=== PATIENT | male | born 1945 | race Caucasian/White ===

== ENCOUNTER 2016-10-01 09:55 | Day surgery (SDC) | payer MEDICARE ==
[~2016-10-01] VITALS: Ht 188 cm; Wt 101.0 kg
[~2016-10-01 09:55] MED LIST: LASI20TA PO; POTA-243 PO; SULF1TAB47 PO; Z.0.NO CURRENT MEDS
[2016-10-01 10:14] VITALS: BP 127/71; PULSE 80; RESP 20; TEMP 97.9; O2SAT 93
[2016-10-01] MEDS ORDERED: PROT6POW PO (10:34)
[2016-10-01] MEDS ORDERED: JANT10TA PO (10:34)
[2016-10-01] MEDS ORDERED: POTA10PO PO (10:34)
[2016-10-01] MEDS ORDERED: ATOR40TA16 PO (10:34)
[2016-10-01] MEDS ORDERED: FOLI1TAB4 PO (10:34)
[2016-10-01] MEDS ORDERED: OXYC1CAP PO (10:34)
[2016-10-01] MEDS ORDERED: NICO2GUM68 TOPICAL (10:34)
[2016-10-01] MEDS ORDERED: SODIUM CHLORIDE 0.9% 1000 ML IV SCH (11:15)
[2016-10-01] MEDS ORDERED: MIDAZOLAM HCL 5 MG/5 ML VIAL ONE (11:46)
[2016-10-01] MEDS ORDERED: fentaNYL CITRATE 250 MCG/5 ML AMP ONE (11:46)
[2016-10-01] MEDS ORDERED: IOHEXOL 350 MG/ML 50 ML BTL (for RAD DIAG) J-TUBE ONE (12:25)
--- NOTE | 2016-10-01 12:29 | PD.RAD ---
Post Procedure Progress Note Pre Procedure Diagnosis: (1) Leak of percutaneous jejunostomy tube Post Procedure Diagnosis: (1) Leak of percutaneous jejunostomy tube Procedure Date: Oct 01, 2016 Supervising Radiologist: Bernard Lozano Anesthesia: Local, Conscious Sedation Plan of Activity Patient to Unit: [facility] Patient Condition: Good See PACS Report for procedural detail/treatment Feeding Tube Jejunostomy Replacement Bernard Lozano MD Oct 01, 2016 12:28
[2016-10-01 12:30] VITALS: BP 136/58; PULSE 79; RESP 16; TEMP 98.4; O2SAT 96
[2016-10-01 12:45] VITALS: BP 148/59; PULSE 76; RESP 16; O2SAT 96
--- NOTE | 2016-10-01 13:05 | RADRPT ---
EXAM DATE/TIME: 10/01/2016 10:11 [place] COMPARISON: No previous studies available for comparison. INDICATIONS : Patient with history of esophageal cancer in need of leaking J-tube exchange. MEDICAL HISTORY : Esophageal cancer with chemotherapy and radiation SURGICAL HISTORY : Colonoscopy, EGD, Lumbar decompression, Esophagogastric anastomosis surgery ENCOUNTER: Initial ACUITY: >1 year PAIN SCORE: 6/10 LOCATION: Right knee FLUORO TIME: 0.9 minutes IMAGE SERIES: 2 SEDATION TIME: 30 minutes CONTRAST: 10 cc Omnipaque (iohexol) 350 MEDICATION(S): 1.) 3.5 mg midazolam (Versed) IV 2.) 175 mcg Fentanyl (Sublimaze) IV DEVICE(S): 1.) 16F Jejunal feeding tube PROCEDURE : 1. Fluoroscopically guided tube exchange. 2. Conscious sedation with continuous EKG and oximetry monitoring. The risks, benefits and alternatives to the procedure were explained and verbal and written consent w as obtained. The site was prepped in sterile fashion. Full sterile technique was used, including ca p, mask, sterile gloves and gown and a large sterile sheet. Hand hygiene and 2% chlorhexidine and/or betadine/alcohol prep was utilized per protocol for cutaneous antisepsis. With fluoroscopic guidance the previously placed tube was exchanged for the prescribed catheter. Pos t procedure image demonstrates satisfactory position of the tube. Conscious sedation was performed with the prescribed dosages and duration as above in the presence of an independent trained radiology nurse to assist in the monitoring of the patient. EKG and oximetry remained stable throughout the procedure. The patient tolerated the procedure well and there were no complications. The patient was sent to post anesthesia recovery in stable condition. CONCLUSION: Uncomplicated tube exchange as above. Bernard Lozano MD on October 01, 2016 at 13:03 Board Certified Radiologist. This report was verified electronically.
[2016-10-01 13:15] VITALS: BP 153/68; PULSE 80; RESP 16; O2SAT 96
[2016-10-01 13:45] VITALS: BP 149/76; PULSE 85; RESP 16; O2SAT 96
[2016-10-01 14:15] VITALS: BP 158/85; PULSE 85; RESP 16; O2SAT 96
== END 2016-10-01 14:15 | disposition home or self-care (01) ==
LOC: HROP 09:55 → HRIP 09:59 → HROP 14:15
PROVIDERS: ATTEND Internal Medicine Gastroenterology
DX: K94.23 Gastrostomy malfunction (principal); Z85.01 Personal history of malignant neoplasm of esophagus
CPT/HCPCS: 49452; 99152; 99153; C1769; J2250; J3010; J7030; Q9967

== ENCOUNTER 2016-10-03 10:32 | Day surgery (SDC) | payer MEDICARE ==
[~2016-10-03 10:32] MED LIST changes: +ATOR40TA16 PO; +FOLI1TAB4 PO; +JANT10TA PO; +NICO2GUM68 TOPICAL; +OXYC1CAP PO; +POTA10PO PO; +PROT6POW PO
== END 2016-10-03 11:10 | disposition home or self-care (01) ==
LOC: HRIP 10:32 → HROP 10:32
PROVIDERS: ATTEND Internal Medicine Gastroenterology
DX: K94.23 Gastrostomy malfunction (principal)
CPT/HCPCS: 99212; G0463